=== PATIENT | female | born 1970 | race Caucasian/White ===

== ENCOUNTER 2018-12-31 00:09 | Emergency (ER) | payer BC ==
[~2018-12-31] VITALS: Ht 162.6 cm; Wt 43.1 kg
[~2018-12-31 00:09] MED LIST: ABILIFY 5 MG TAB5 M1 PO; ADDERALL 20 MG20 M1 PO; ADDERALL 30 MG30 MG PO; AMBIEN 10 MG TA10 MG PO; ATIVAN1 MG PO; AZOR 10-40 MG1 EACH PO; CIPROFLOXACIN500 M3 PO; CLONIDINE HCL0.3 M3 PO; FLEXERIL PO; FUROSEMIDE10 MG/1 M2 PO; IMITREX 6M6 MG/0.5 M IM; IMITREX PO; LORTAB 5 MG/5001 TAB PO; MEDROL DOSPAK21 TAB PO; NORCO 5-325 TA1 EACH PO; OXYCONTIN CR 2020 MG PO; OXYCONTIN10 M1 PO; PERCOCET 5-3251 EACH PO; PHENERGAN 25 MG25 M1 PO; PREVACID 30MG C30 M1 PG; PROVENTIL; ROXICODONE15 M1 PO; ROXICODONE5 M2 PO; WELLBUTRIN 100100 M1 NG; XANAX1 MG PO
[2018-12-31] MEDS ORDERED: AZOR 10-40 MG1 EACH PO (00:17)
[2018-12-31 03:37] LABS: AMP/METHAMP POSITIVE (Negative); BARBITURATES Negative (Negative); BENZODIAZEPINES POSITIVE (Negative); COCAINE Negative (Negative); METHADONE Negative (Negative); OPIATES Negative (Negative); PCP Negative (Negative)
[2018-12-31 05:12] VITALS: BP 132/76
== END 2018-12-31 05:16 | disposition home or self-care (01) ==
LOC: ER 00:09
PROVIDERS: Emergency Medicine
DX: S05.02XA Injury of conjunctiva and corneal abrasion without foreign body, left eye, initial encounter (principal); F15.10 Other stimulant abuse, uncomplicated; J45.909 Unspecified asthma, uncomplicated; G43.909 Migraine, unspecified, not intractable, without status migrainosus; I10 Essential (primary) hypertension; F17.210 Nicotine dependence, cigarettes, uncomplicated; Z88.0 Allergy status to penicillin; Z88.5 Allergy status to narcotic agent; Z91.048 Other nonmedicinal substance allergy status; X58.XXXA Exposure to other specified factors, initial encounter; Y93.89 Activity, other specified; Y92.89 Other specified places as the place of occurrence of the external cause; Y99.8 Other external cause status

== ENCOUNTER 2021-02-25 18:27 | Emergency (ER) | payer BC ==
[~2021-02-25] VITALS: Ht 157.5 cm; Wt 79.4 kg
[2021-02-25 19:25] LABS: URINE BILIRUBIN NEGATIVE (Negative); URINE BLOOD 3+ (Negative); URINE CLARITY CLOUDY; URINE COLOR RED; URINE GLUCOSE-RANDOM* 1+ (Negative); URINE KETONES 1+ (Negative); URINE PROTEIN (DIPSTICK) 2+ (Negative)
[2021-02-25 19:26] LABS: SQUAMOUS 0-3 Few /LPF (0-3); URINE LEUKOCYTES-REFLEX 2+ (Negative); URINE NITRITE-REFLEX POSITIVE (Negative)
[2021-02-25 19:27] LABS: BACTERIA-REFLEX 1-9 Few /HPF (None Seen); CASTS None Seen /LPF (None Seen); CRYSTALS None Seen /LPF (None Seen); URINE WBC-REFLEX 0-5 Rare /HPF (0-5)
[2021-02-25 20:02] LABS: ABSOLUTE NEUTROPHILS 10.1 thou/uL (1.4-8.2); BASOPHILS 0.9 % (0.0-2.0); EOSINOPHILS 1.8 % (0.0-3.0); HEMATOCRIT 35.4 % (37.0-47.0); HEMOGLOBIN 11.9 gm/dL (12.0-15.0); LYMPHOCYTES 5.9 % (24.0-44.0); MCH 36.7 pg (26.0-34.0); MCHC 33.7 g/dL (28.0-37.0); MCV 108.9 fL (80.0-100.0); MONOCYTES 4.8 % (1.0-8.0); PLATELET COUNT 259 thou/uL (150-400); POLYS 86.6 % (36.0-66.0); RBC 3.26 mil/uL (4.20-5.00); RDW 16.6 % (10.5-14.5); WBC 11.6 thou/uL (4.0-11.0)
[2021-02-25 20:04] LABS: CALCIUM 9.1 mg/dL (8.5-10.1); CREATININE 1.6 mg/dL (0.6-1.0); POTASSIUM 4.3 mmol/L (3.5-5.1)
[2021-02-25 20:37] LABS: ALBUMIN 3.6 g/dL (3.4-5.0); DIRECT BILIRUBIN 0.3 mg/dL (<0.1-0.2); TOTAL BILIRUBIN 0.7 mg/dL (0.2-1.0); TOTAL PROTEIN 7.1 g/dL (6.4-8.2)
[2021-02-25] MEDS ORDERED: FLOMAX0.4 MG PO (21:43)
[2021-02-25] MEDS ORDERED: CEPHALEXIN500 MG PO (21:43)
[2021-02-25] MEDS ORDERED: ZOFRAN ODT4 MG PO (21:43)
[2021-02-25] MEDS ORDERED: NORCO 10-325 T1 EACH PO (21:43)
[2021-02-25 22:17] VITALS: BP 183/121
== END 2021-02-25 22:18 | disposition home or self-care (01) ==
LOC: ER 18:27
PROVIDERS: Emergency Medicine; Nurse Practitioner Family
DX: N20.1 Calculus of ureter (principal); J45.909 Unspecified asthma, uncomplicated; G43.909 Migraine, unspecified, not intractable, without status migrainosus; I10 Essential (primary) hypertension; Z88.0 Allergy status to penicillin; Z88.5 Allergy status to narcotic agent; Z91.09 Other allergy status, other than to drugs and biological substances

== ENCOUNTER 2021-09-08 05:01 | Emergency (ER) | payer BC ==
[~2021-09-08] VITALS: Ht 162.6 cm; Wt 65.8 kg
--- NOTE | ~2021-09-08 | EMS ---
[address] [address] EMS Patient Care Report Name: DAPHNE HARDING Room #: DEP Jon#: [id number] Admission: 09/08/21 Attend Phys: Discharge: 09/08/21 Date of : 68 Report #: [id number] THIS REPORT FOR: //name// Report Transmitted: 09/09/2021 12:51 EMS Care Summary [place], [place]/[facility] Incident [id number] @ 09/08/2021 04:23 Incident Location [address] [place] [address] Patient DAPHNE HARDING Female, 50 Years 1970 Patient Address [address] [place] [address] Patient History Asthma,Hypertension (HTN), Patient Allergies No known allergies, Chief Complaint Suicidal Ideations Disposition Transported No Lights/[place] Dispatch Reason Psychiatric Problem/Abnormal Behavior/Suicide Attempt Transported To [facility] Narrative M36 dispatched for psychiatric with PD. Arrival at the scene EMS personnel find the patient with PD inside the residence. Patient acknowledges EMS presence is GCS 15, and AAOX4. Patient has a patent airway is breathing adequately with strong is radial pulses. Skin is pink warm and dry. Patient is uncooperative toward EMS and shows extreme hate and discontent toward EMS crew. PD confirms that the patient made some Suicidal ideation statements and that she wanted to [address] [address] EMS Patient Care Report Name: DAPHNE HARDING Room #: DEP [facility]#: [id number] Admission: 09/08/21 Attend Phys: Discharge: 09/08/21 Date of : 68 Report #: [id number] harm herself. Patient is assisted to the ambulance by EMS and PD. Patient is placed on the stretcher and secured in the fowlers position using seatbelts and rails. VS are obtained and transport is initiated to [facility] at request of PD who advise that the patient is being [facility]. Assessment conducted is unremarkable. Arrival at the receiving facility the patient is assisted from the ambulance. Patient is rude and aggressive toward EMS by slamming her purse into the cabinets in the ambulance on the way out the door. Patient is assisted to ED room 4. RN is given report and transfer of care is completed. Signature is not obtained due to the patient being uncooperative with EMS. M36 returns to service. Initial Vitals @04:50P: 116,R: 18,BP: 165/94,Pain: 0/10,GCS: 15,SpO2: 98,Revised Trauma: 12, @04:55P: 107,R: 18,BP: 176/145,Pain: 0/10,GCS: 15,CO: 2,SpO2: 92,Revised Trauma: 12, Assessments @04:57MENTAL:No Abnormalities,SKIN:No Abnormalities,HEENT:Head/Face: No Abnormalities,Eyes: No Abnormalities,Neck/Airway: No Abnormalities,LUNG SOUNDS:General: No Abnormalities,Left Upper: No Abnormalities,Right Upper: No Abnormalities,Left Lower: No Abnormalities,Right Lower: No Abnormalities,ABDOMEN:General: No Abnormalities,Left Upper: No Abnormalities,Right Upper: No Abnormalities,Left Lower: No Abnormalities,Right Lower: No Abnormalities,PELVIS//GI:No Abnormalities,EXTREMITIES:Left Arm: No Abnormalities,Right Arm: No Abnormalities,Left Leg: No Abnormalities,Right Leg: No Abnormalities,PULSE:Radial: 2+ Normal,NEURO:No Abnormalities, Impression Behavioral/psychiatric episode Procedures @04:56 ALS Assessment Response: UnchangedSucceeded Timeline 04:22,Call Received 04:22,Dispatch Notified 04:23,Dispatched 04:26,En Route 04:31,On Scene 04:33,At Patient 04:50,BP: 165/94 M,PULSE: 116,RR: 18 R,SPO2: 98 Ox,ETCO2: ,BG: ,PAIN: 0,GCS: 15, [place] [address] EMS Patient Care Report Name: DAPHNE HARDING Room #: [facility]#: [id number] Admission: 09/08/21 Attend Phys: Discharge: 09/08/21 Date of : 68 Report #: [id number] 04:52,Depart Scene 04:55,BP: 176/145 M,PULSE: 107,RR: 18 R,SPO2: 92 Ox,ETCO2: ,BG: ,PAIN: 0,GCS: 15, 04:56,ALS Assessment,Response: UnchangedSucceeded, 04:58,At Destination 05:10,Call Closed Disclaimer v1.1 Copyright 2021 [employer] This EMS Care Summary contains data elements from the applicable legal record (which may be displayed differently). It is designed to provide pertinent information for the following purposes: continuity of care, clinical quality, and state data reporting. The complete legal record is available to ED staff and administrators of the receiving hospital in [employer]'s Patient Tracker. All data is provided "as is."
[~2021-09-08 05:01] MED LIST changes: +CEPHALEXIN500 MG PO; +FLOMAX0.4 MG PO; +NORCO 10-325 T1 EACH PO; +ZOFRAN ODT4 MG PO
[2021-09-08 05:31] LABS: HEMATOCRIT 32.7 % (37.0-47.0); HEMOGLOBIN 10.7 gm/dL (12.0-15.0); MCH 34.6 pg (26.0-34.0); MCHC 32.8 g/dL (28.0-37.0); MCV 105.5 fL (80.0-100.0); PLATELET COUNT 271 thou/uL (150-400); RDW 19.1 % (10.5-14.5); WBC 11.9 thou/uL (4.0-11.0)
[2021-09-08 05:39] LABS: ANION GAP 15 mmol/L (7-16); BUN 21 mg/dL (7-18); CALCIUM 9.2 mg/dL (8.5-10.1); CHLORIDE 94 mmol/L (98-107); CO2 24 mmol/L (21-32); CREATININE 1.5 mg/dL (0.6-1.0); GLUCOSE 283 mg/dL (74-106); POTASSIUM 3.4 mmol/L (3.5-5.1); SODIUM 133 mmol/L (136-145)
[2021-09-08 05:47] LABS: SGOT 198 U/L (15-37); SGPT 97 U/L (14-59); TOTAL BILIRUBIN 3.6 mg/dL (0.2-1.0); TOTAL PROTEIN 7.3 g/dL (6.4-8.2)
[2021-09-08 05:57] LABS: SALICYLATE < 2.8 mg/dL (2.8-20.0)
[2021-09-08 07:13] LABS: AMP/METHAMP POSITIVE (Negative); BARBITURATES Negative (Negative); BENZODIAZEPINES POSITIVE (Negative); COCAINE Negative (Negative); METHADONE Negative (Negative); OPIATES Negative (Negative); PCP Negative (Negative)
--- NOTE | 2021-09-08 07:51 | EKG ---
[place] [address] [facility] [place] [address] ELECTROCARDIOGRAM REPORT Name: DAPHNE HARDING Room #: [facility]#: [id number] Admission: 09/08/21 Attend Phys: Discharge: Date of : 68 Report #: [id number] [facility] ED Test Date: 2021-09-08 Test Time: 05:28:22 Pat Name: DAPHNE HARDING Department: Room: Gender: F Toll Operator: SALAZAR : 1970 Requested By: Carlitos Moore Order Number: [id number] MD: Jeremías Barron Measurements Intervals [place] Rate: 104 P: 66 W[place]: 125 QRS: 76 QRSD: 91 T: QT: 365 QTc: 481 Interpretive Statements Sinus tachycardia Nonspecific ST and T wave abnormality Compared to ECG 12/09/2010 23:24:46 ST and T wave abnormality is more pronounced Electronically Signed On 09-08-2021 7:51:36 LITHOGRAPHIC ARTIST by Jeremías Barron [email or web address] <ELECTRONICALLY SIGNED> By: Jeremías Barron MD, [facility] 09/08/21 0751 0528 0528 Jeremías Barron MD, FACC /EPI
[2021-09-08 09:40] VITALS: BP 145/78
[2021-09-08 10:32] LABS: ABSOLUTE NEUTROPHILS 9.6 thou/uL (1.4-8.2); METAMYELOCYTES 1 %; MYELOCYTES 1 %
[2021-09-08 10:33] LABS: ANISOCYTOSIS 2+; MACROCYTES 1+
== END 2021-09-08 09:44 | disposition home or self-care (01) ==
LOC: ER 05:01
PROVIDERS: Emergency Medicine
DX: F32.9 Major depressive disorder, single episode, unspecified (principal); Z20.822 Contact with and (suspected) exposure to COVID-19; R45.851 Suicidal ideations; J45.909 Unspecified asthma, uncomplicated; G43.909 Migraine, unspecified, not intractable, without status migrainosus; I10 Essential (primary) hypertension; Z79.899 Other long term (current) drug therapy; Z88.5 Allergy status to narcotic agent; Z88.0 Allergy status to penicillin